=== PATIENT | female | born 1945 | race African-American/Black ===

== ENCOUNTER 2017-01-26 21:09 | Emergency (ER) | payer OTHER ==
--- NOTE | 2017-01-26 22:47 | ED ORDER SUMMARY ---
..... Patient: GARFIELD CISNEROS OrderSheet [facility] VisitID: [id number] [place] [address] 71y, F Registration Date/Time: 01/26/2017 ORDER SHEET Weight: 90.7 kg (stated) Allergies: Codeine, Metamucil, Sepulveda, Tramadol GENERAL ORDERS: Knee 4V Left Urgent (21:51 01/26/2017 Ramiro Jung) (Ack 22:07 Mala) (22:41 Frantz R.N.) Ice (21:52 01/26/2017 Ramiro Jung) (21:59 Frantz Zelaya.N.) MEDICATION ORDERS: Dexamethasone IM 4 mg (NOW) (22:26 01/26/2017 Ramiro Jung) (22:41 Thomas R.N.) IV FLUIDS: ORDER SHEET NOTES: [Electronically signed by Fely Ziegler R.N. (23:20 01/26/2017)] [Electronically signed by Blade Gilman Dr. (23:30 01/26/2017)] [Electronically locked/signed by Fely Ziegler R.N. (23:20 01/26/2017)]
--- NOTE | 2017-01-26 22:47 | ED CLINICAL REPORT ---
Clinical Report - Physicians/Mid Levels [facility] [address] [place] [address] 01/26/2017 21:09 Patient: GARFIELD CISNEROS Time Seen: 21:19; initial patient contact. Arrived- By private vehicle. Historian- patient. HISTORY OF PRESENT ILLNESS Chief Complaint: Injury to left knee. The injury happened today. Injury secondary to other mechansim (No injury). Patient is experiencing moderate pain. Patient denies injury to the head or neck. REVIEW OF SYSTEMS The patient complains of pain on weight bearing. She has had swelling. No tingling, weakness or numbness. All systems otherwise negative, except as recorded above. PAST HISTORY ( Hypertension. Arthritis. DJD.). Medications: Unable to Obtain. Allergies: Codeine. Sepulveda. Metamucil. Tramadol. SOCIAL HISTORY Current every day smoker. Occasional alcohol use. No drug use. ADDITIONAL NOTES The nursing notes have been reviewed. PHYSICAL EXAM Vital Signs: 01/26/2017 21:17 BP: 161/99. HR: 71. RR: 17. O2 saturation: 100%. Temp: 98.3 F. Pain level now: 0/10. Have been reviewed. Blood pressure normal. Tachycardic. Respiratory rate normal. Temperature normal. Oxygen saturation normal. Appearance: Alert. Oriented X3. No acute distress. Skin: Skin warm and dry. Normal skin color. Extremities: Left knee: mild tenderness and swelling. Limited ROM secondary to pain (diminished flexion and extension). Neurovascular intact distally. No ligamentous laxity present. No joint effusion. No erythema, ecchymosis, foreign body or deformity. Lower extremity exam otherwise negative. Extremities otherwise negative. Neuro, Vascular and Tendons: Vascular status intact. Sensation intact. Motor intact. Tendon function intact. Gait: Limping gait. Neuro: Oriented X 3. No motor deficit. PROGRESS AND PROCEDURES PROCEDURES Per protocol, time-out completed immediately before the procedure. Verified: consent was obtained; consent was reviewed. (Left knee joint injection: Consent obtained. Risks/benefits explained. Utilizing sterile technique joint space was entered inferior lateral approach with ease w/ a 1.5" 22 ga needle. 1 mL 4 mg dexamethasone, 2mL Marcaine 0.5%, and 2 mL of Lidocaine plain 2% injected. No complications or bleeding. Pt tolerated the procedure well. Pt reports ionstant pain relief.). Course of Care: Pt reports instant pain relief after injection. Disposition: Discharged home in good and improved condition. Condition: good. CLINICAL IMPRESSION Acute flare of moderate chronic primary osteoarthritis involving the left knee. INSTRUCTIONS Apply ice for 20 minutes four times a day until better. Don't apply ice directly to skin. Do not work for two days. Your Current Medications: CONTINUE TAKING THE FOLLOWING MEDICATIONS: Unable to Obtain*. Prescription Medications: Diclofenac 50 mg tablets: take 1 tablet orally every 8 hours as needed for pain or stiffness. Dispense thirty (30). No refill. Follow-up: Blood pressure screening was not performed during this visit because the patient has an active diagnosis of hypertension. Follow-up with: [facility], , [address], [facility], [id number] Follow up in about two days. Call for an appointment. (Electronically signed by Blade Gilman Dr. 01/26/2017 23:30)
--- NOTE | 2017-01-26 22:47 | ED NURSING NOTES ---
Clinical Report - Nurses [facility] [address] [place] [address] 01/26/2017 21:09 Patient: GARFIELD CISNEROS TRIAGE Triage time 21:Jan 26 2017. Chief Complaint: LEFT LOWER EXTREMITY PAIN. Location of symptoms- left knee (Pt got out of car at work and her left knee "clicked, clicked" and then gave out). Alert. No acute distress. FRANCISCO COMA SCORE: [place] Coma Scale: 15- eyes open spontaneously (4); best verbal response- oriented x 4 (5); best motor response- obeys commands (6). --21:30 Fely Ziegler R.N. 21:17 01/26/17. BP: 161/99. HR: 71. RR: 17. O2 saturation: 100%. Temp: 98.3 F. Pain level now: 0/10. --21:30 Fely Ziegler R.N. Weight: 90.7 kg stated. Height/Length: 65 inches Per Patient. BMI: 33.3. --21:22 Fely Ziegler R.N. Medications Unable to Obtain. --21:21 Fely Ziegler R.N. Medication/allergy information source: the patient. --21:30 Fely Ziegler R.N. Allergies Codeine. --21:22 Fely Ziegler R.N. Metamucil. --21:22 Fely Ziegler R.N. Sepulveda. --21:22 Fely Ziegler R.N. Tramadol. --21:23 Fely Ziegler R.N. History Arrived by private vehicle. Historian: patient. Accompanied by family. No injury occurred. Location of injuries: left knee. This occurred just prior to arrival. Provoking / relieving factors: (pain only with movement). She has had trouble walking. 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 PAST MEDICAL HX: Tetanus status: up-to-date. Immunizations: up-to-date. The patient has had a hysterectomy. SOCIAL HX: Smoker- current status unknown (cigarette). Never smoker. Alcohol use; consumes liquor occasionally. No drug use. No infectious disease exposure. ABUSE ASSESSMENT: No report of abuse. SELF HARM ASSESSMENT: A self harm assessment was performed. The patient answered "no" to the question "Do you have thoughts of harming or killing yourself?". FALL RISK ASSESSMENT: Fall risk assessment completed. No fall risk identified. NUTRITIONAL RISK ASSESSMENT: The nutritional risk assessment revealed no deficiencies. FUNCTIONAL ASSESSMENT: Functional assessment: no impairments noted. LEARNING NEEDS ASSESSMENT: The learning needs assessment revealed no barriers. SKIN INTEGRITY ASSESSMENT: Skin integrity risk assessment completed. No skin integrity risk identified. --21:30 Fely Ziegler R.N. PROBLEMS: Hypertension. Arthritis. DJD. --21:23 Fely Ziegler R.N. ADDITIONAL SURGERIES: Cholecystectomy. . Hernia Repair. Knee arthroscopic. Ortho foot surgery. Tonsillectomy. --21:23 Fely Ziegler R.N. Hysterectomy. --21:28 Fely Ziegler R.N. Interventions ID and allergy band on patient. --21:30 Fely Ziegler R.N. PHYSICAL ASSESSMENT To room via wheelchair. Patient gowned. GENERAL / NEURO / PSYCH: Oriented X 4. Alert. Appears in no acute distress. EXTREMITIES: Extremity pulses are within normal limits. Neuro-vascular status intact to the extremity. Left knee: tenderness and swelling. SKIN: Skin intact. Skin is warm and dry. --21:30 Fely Ziegler R.N. NURSING PROGRESS NOTES Neuro-vascular extremity check. Patient identifiers checked. Call light placed in reach. Side rails up. Bed placed in lowest position. Brakes of bed on. Patient ready for evaluation- chart flagged. Patient waiting for evaluation. --21:30 Fely Ziegler R.N. 22:41 01/26/2017 Dexamethasone IM 4 mg given. Allergies verified and confirmed 5 rights. (Given by Dr. Gilman). --22:41 Bullard, Trupti, R.N. DISPOSITION / DISCHARGE Condition at departure: improved. No learning barriers present. Discharge instructions provided and reviewed with the patient. Reviewed medication(s) side effects, precautions, dosing and course information. Work note given. Patient verbalized understanding. Written instructions provided in Grenadian. The patient was discharged by the physician. She was discharged home and accompanied by family. She left the Emergency Department ambulatory and via private vehicle. Family member driving. ( [facility], [facility] offer of w/c, given rx and f/u.). --23:19 Fely Ziegler R.N. 23:17 01/26/17. BP: 172/96. HR: 67. RR: 17. O2 saturation: 99%. Temp: 98 F. Pain level now: 0/10. --23:19 Fely Ziegler R.N. Locked/Released at 01/26/2017 23:20 by Fely Ziegler R.N.
--- NOTE | 2017-01-26 22:47 | ED NURSING NOTES ---
Clinical Report - Nurses [facility] [address] [place] [address] 01/26/2017 21:09 Patient: GARFIELD CISNEROS TRIAGE Triage time 21:Jan 26 2017. Chief Complaint: LEFT LOWER EXTREMITY PAIN. Location of symptoms- left knee (Pt got out of car at work and her left knee "clicked, clicked" and then gave out). Alert. No acute distress. FRANCISCO COMA SCORE: [place] Coma Scale: 15- eyes open spontaneously (4); best verbal response- oriented x 4 (5); best motor response- obeys commands (6). --21:30 Fely Ziegler R.N. 21:17 01/26/17. BP: 161/99. HR: 71. RR: 17. O2 saturation: 100%. Temp: 98.3 F. Pain level now: 0/10. --21:30 Fely Ziegler R.N. Weight: 90.7 kg stated. Height/Length: 65 inches Per Patient. BMI: 33.3. --21:22 Fely Ziegler R.N. Medications Unable to Obtain. --21:21 Fely Ziegler R.N. Medication/allergy information source: the patient. --21:30 Fely Ziegler R.N. Allergies Codeine. --21:22 Fely Ziegler R.N. Metamucil. --21:22 Fely Ziegler R.N. Sepulveda. --21:22 Fely Ziegler R.N. Tramadol. --21:23 Fely Ziegler R.N. History Arrived by private vehicle. Historian: patient. Accompanied by family. No injury occurred. Location of injuries: left knee. This occurred just prior to arrival. Provoking / relieving factors: (pain only with movement). She has had trouble walking. 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 PAST MEDICAL HX: Tetanus status: up-to-date. Immunizations: up-to-date. The patient has had a hysterectomy. SOCIAL HX: Smoker- current status unknown (cigarette). Never smoker. Alcohol use; consumes liquor occasionally. No drug use. No infectious disease exposure. ABUSE ASSESSMENT: No report of abuse. SELF HARM ASSESSMENT: A self harm assessment was performed. The patient answered "no" to the question "Do you have thoughts of harming or killing yourself?". FALL RISK ASSESSMENT: Fall risk assessment completed. No fall risk identified. NUTRITIONAL RISK ASSESSMENT: The nutritional risk assessment revealed no deficiencies. FUNCTIONAL ASSESSMENT: Functional assessment: no impairments noted. LEARNING NEEDS ASSESSMENT: The learning needs assessment revealed no barriers. SKIN INTEGRITY ASSESSMENT: Skin integrity risk assessment completed. No skin integrity risk identified. --21:30 Fely Ziegler R.N. PROBLEMS: Hypertension. Arthritis. DJD. --21:23 Fely Ziegler R.N. ADDITIONAL SURGERIES: Cholecystectomy. . Hernia Repair. Knee arthroscopic. Ortho foot surgery. Tonsillectomy. --21:23 Fely Ziegler R.N. Hysterectomy. --21:28 Fely Ziegler R.N. Interventions ID and allergy band on patient. --21:30 Fely Ziegler R.N. PHYSICAL ASSESSMENT To room via wheelchair. Patient gowned. GENERAL / NEURO / PSYCH: Oriented X 4. Alert. Appears in no acute distress. EXTREMITIES: Extremity pulses are within normal limits. Neuro-vascular status intact to the extremity. Left knee: tenderness and swelling. SKIN: Skin intact. Skin is warm and dry. --21:30 Fely Ziegler R.N. NURSING PROGRESS NOTES Neuro-vascular extremity check. Patient identifiers checked. Call light placed in reach. Side rails up. Bed placed in lowest position. Brakes of bed on. Patient ready for evaluation- chart flagged. Patient waiting for evaluation. --21:30 Fely Ziegler R.N. 22:41 01/26/2017 Dexamethasone IM 4 mg given. Allergies verified and confirmed 5 rights. (Given by Dr. Gilman). --22:41 Bullard, Trupti, R.N. DISPOSITION / DISCHARGE Condition at departure: improved. No learning barriers present. Discharge instructions provided and reviewed with the patient. Reviewed medication(s) side effects, precautions, dosing and course information. Work note given. Patient verbalized understanding. Written instructions provided in Belizean. The patient was discharged by the physician. She was discharged home and accompanied by family. She left the Emergency Department ambulatory and via private vehicle. Family member driving. ( [facility], [facility] offer [facility] w/[facility], given rx and f/u.). --23:19 Fely Ziegler R.N. 23:17 01/26/17. BP: 172/96. HR: 67. RR: 17. O2 saturation: 99%. Temp: 98 F. Pain level now: 0/10. --23:19 Fely Ziegler R.N. Locked/Released at 01/26/2017 23:20 by Fely Ziegler R.N.
--- NOTE | 2017-01-26 22:47 | ED CLINICAL REPORT ---
Clinical Report - Physicians/Mid Levels [facility] [address] [place] [address] 01/26/2017 21:09 Patient: GARFIELD CISNEROS Time Seen: 21:19; initial patient contact. Arrived- By private vehicle. Historian- patient. HISTORY OF PRESENT ILLNESS Chief Complaint: Injury to left knee. The injury happened today. Injury secondary to other mechansim (No injury). Patient is experiencing moderate pain. Patient denies injury to the head or neck. REVIEW OF SYSTEMS The patient complains of pain on weight bearing. She has had swelling. No tingling, weakness or numbness. All systems otherwise negative, except as recorded above. PAST HISTORY ( Hypertension. Arthritis. DJD.). Medications: Unable to Obtain. Allergies: Codeine. Sepulveda. Metamucil. Tramadol. SOCIAL HISTORY Current every day smoker. Occasional alcohol use. No drug use. ADDITIONAL NOTES The nursing notes have been reviewed. PHYSICAL EXAM Vital Signs: 01/26/2017 21:17 BP: 161/99. HR: 71. RR: 17. O2 saturation: 100%. Temp: 98.3 F. Pain level now: 0/10. Have been reviewed. Blood pressure normal. Tachycardic. Respiratory rate normal. Temperature normal. Oxygen saturation normal. Appearance: Alert. Oriented X3. No acute distress. Skin: Skin warm and dry. Normal skin color. Extremities: Left knee: mild tenderness and swelling. Limited ROM secondary to pain (diminished flexion and extension). Neurovascular intact distally. No ligamentous laxity present. No joint effusion. No erythema, ecchymosis, foreign body or deformity. Lower extremity exam otherwise negative. Extremities otherwise negative. Neuro, Vascular and Tendons: Vascular status intact. Sensation intact. Motor intact. Tendon function intact. Gait: Limping gait. Neuro: Oriented X 3. No motor deficit. PROGRESS AND PROCEDURES PROCEDURES Per protocol, time-out completed immediately before the procedure. Verified: consent was obtained; consent was reviewed. (Left knee joint injection: Consent obtained. Risks/benefits explained. Utilizing sterile technique joint space was entered inferior lateral approach with ease w/ a 1.5" 22 ga needle. 1 mL 4 mg dexamethasone, 2mL Marcaine 0.5%, and 2 mL of Lidocaine plain 2% injected. No complications or bleeding. Pt tolerated the procedure well. Pt reports ionstant pain relief.). Course of Care: Pt reports instant pain relief after injection. Disposition: Discharged home in good and improved condition. Condition: good. CLINICAL IMPRESSION Acute flare of moderate chronic primary osteoarthritis involving the left knee. INSTRUCTIONS Apply ice for 20 minutes four times a day until better. Don't apply ice directly to skin. Do not work for two days. Your Current Medications: CONTINUE TAKING THE FOLLOWING MEDICATIONS: Unable to Obtain*. Prescription Medications: Diclofenac 50 mg tablets: take 1 tablet orally every 8 hours as needed for pain or stiffness. Dispense thirty (30). No refill. Follow-up: Blood pressure screening was not performed during this visit because the patient has an active diagnosis of hypertension. Follow-up with: [facility], , [address], [facility], [id number] Follow up in about two days. Call for an appointment. (Electronically signed by Blade Gilman Dr. 01/26/2017 23:30)
--- NOTE | 2017-01-26 22:47 | ED ORDER SUMMARY ---
..... Patient: GARFILED CISNEROS OrderSheet [facility] VisitID: [id number] [place] [address] 71y, F Registration Date/Time: 01/26/2017 ORDER SHEET Weight: 90.7 kg (stated) Allergies: Codeine, Metamucil, Sepulveda, Tramadol GENERAL ORDERS: Knee 4V Left Urgent (21:51 01/26/2017 Ramiro Jung) (Ack 22:07 Mala) (22:41 Frantz R.N.) Ice (21:52 01/26/2017 Ramiro Jung) (21:59 Frantz Zelaya.N.) MEDICATION ORDERS: Dexamethasone IM 4 mg (NOW) (22:26 01/26/2017 Ramiro Jung) (22:41 Thomas R.N.) IV FLUIDS: ORDER SHEET NOTES: [Electronically signed by Fely Ziegler R.N. (23:20 01/26/2017)] [Electronically signed by Blade Gilman Dr. (23:30 01/26/2017)] [Electronically locked/signed by Fely Ziegler R.N. (23:20 01/26/2017)]
--- NOTE | 2017-01-26 23:30 | ED MAR SUMMARY ---
..... Medication Administration Record [facility] [address] [place] [address] Patient: GARFIELD CISNEROS Visit ID: [id number] 71y, F Weight: 90.7 kg Height/Length: 65 in BMI: 33.3 ALLERGIES: Tramadol, Sepulveda, Metamucil, Codeine Given 22:41 01/26/2017 Trupti Bullard RAdalid Medication Administered: DEXAMETHASONE [IM], Dose: 4 mg IM. Medication Ordered: Dexamethasone IM 4 mg (NOW).
--- NOTE | 2017-01-26 23:30 | ED DISCHARGE INSTRUCTIONS ---
Patient: GARFIELD CISNEROS General Instructions [facility] VisitID: [id number] [address] [place] [address] 71y, F Registration Date/Time: 01/26/2017 Acute flare of moderate chronic primary osteoarthritis involving the left knee. INSTRUCTIONS Apply ice for 20 minutes four times a day until better. Don't apply ice directly to skin. Do not work for two days. Your Current Medications: CONTINUE TAKING THE FOLLOWING MEDICATIONS: Unable to Obtain*. Prescription Medications: Diclofenac 50 mg tablets: take 1 tablet orally every 8 hours as needed for pain or stiffness. Dispense thirty (30). No refill. Follow-up: Blood pressure screening was not performed during this visit because the patient has an active diagnosis of hypertension. Follow[facility]up with: [facility], , [address], [place], [address] Follow up in about two days. Call for an appointment. ADDITIONAL INFORMATION Osteoarthritis Osteoarthritis (also called Degenerative Joint Disease) is the most common form of arthritis in adults over 50. It is not the same as Rheumatoid Arthritis. The exact cause is not known but may be related to excess wear and tear on the joint over a long period of time. Prior injury to that joint, or repeated stress on a joint can also cause this type of arthritis. Osteoarthritis most often affects the hands, knees, spine and hips (in that order). The most common symptoms are joint stiffness, pain and swelling. Home Care: When a joint is more sore than usual, rest that joint for a day or two. Heat is very helpful. This can be provided by taking hot baths, applying a heating pad for up to 30 minutes at a time. Because symptoms are usually worse in the morning, many patients like to take a hot bath just after awakening to relax the muscle and soothe the joints. Exercise is the most important part of home treatment for osteoarthritis. This prevents the muscles and ligaments around the joint from becoming weak and helps maintain the full range of joint motion. This limits further damage to the joint. If you are overweight, this puts a lot of extra strain on weight-bearing joints of the lower back, hips, knees, feet and ankles. Losing weight will improve your arthritis symptoms in these joints. Talk to your doctor about a safe and effective weight loss program for yourself. Anti-inflammatory medicine such as ibuprofen (Advil, Motrin) or naproxen (Aleve) is often used to treat this condition. If this alone is not helping, your doctor may prescribe a stronger medicine. If narcotic pain medicines have been prescribed, they should be used in addition to anti-inflammatory drugs and only for severe pain. Follow Up with your doctor as advised by our staff. Get Prompt Medical Attention if any of the following occur: Redness or swelling of a painful joint Fever of 100.4F (38C) or higher, or as directed by your healthcare provider Worsening joint pain You have been given the following additional information: Osteoarthritis Do not work for two days. (Electronically signed by Blade Gilman Dr. 01/26/2017 23:30)
--- NOTE | 2017-01-26 23:30 | ED DISCHARGE INSTRUCTIONS ---
Patient: GARFIELD CISNEROS General Instructions [facility] VisitID: [id number] [address] [place] [address] 71y, F Registration Date/Time: 01/26/2017 Acute flare of moderate chronic primary osteoarthritis involving the left knee. INSTRUCTIONS Apply ice for 20 minutes four times a day until better. Don't apply ice directly to skin. Do not work for two days. Your Current Medications: CONTINUE TAKING THE FOLLOWING MEDICATIONS: Unable to Obtain*. Prescription Medications: Diclofenac 50 mg tablets: take 1 tablet orally every 8 hours as needed for pain or stiffness. Dispense thirty (30). No refill. Follow-up: Blood pressure screening was not performed during this visit because the patient has an active diagnosis of hypertension. Follow-up with: [facility], , [address], [place], [address] Follow up in about two days. Call for an appointment. ADDITIONAL INFORMATION Osteoarthritis Osteoarthritis (also called Degenerative Joint Disease) is the most common form of arthritis in adults over 50. It is not the same as Rheumatoid Arthritis. The exact cause is not known but may be related to excess wear and tear on the joint over a long period of time. Prior injury to that joint, or repeated stress on a joint can also cause this type of arthritis. Osteoarthritis most often affects the hands, knees, spine and hips (in that order). The most common symptoms are joint stiffness, pain and swelling. Home Care: When a joint is more sore than usual, rest that joint for a day or two. Heat is very helpful. This can be provided by taking hot baths, applying a heating pad for up to 30 minutes at a time. Because symptoms are usually worse in the morning, many patients like to take a hot bath just after awakening to relax the muscle and soothe the joints. Exercise is the most important part of home treatment for osteoarthritis. This prevents the muscles and ligaments around the joint from becoming weak and helps maintain the full range of joint motion. This limits further damage to the joint. If you are overweight, this puts a lot of extra strain on weight-bearing joints of the lower back, hips, knees, feet and ankles. Losing weight will improve your arthritis symptoms in these joints. Talk to your doctor about a safe and effective weight loss program for yourself. Anti-inflammatory medicine such as ibuprofen (Advil, Motrin) or naproxen (Aleve) is often used to treat this condition. If this alone is not helping, your doctor may prescribe a stronger medicine. If narcotic pain medicines have been prescribed, they should be used in addition to anti-inflammatory drugs and only for severe pain. Follow Up with your doctor as advised by our staff. Get Prompt Medical Attention if any of the following occur: Redness or swelling of a painful joint Fever of 100.4F (38C) or higher, or as directed by your healthcare provider Worsening joint pain You have been given the following additional information: Osteoarthritis Do not work for two days. (Electronically signed by Blade Gilman Dr. 01/26/2017 23:30)
--- NOTE | 2017-01-26 23:30 | ED MAR SUMMARY ---
..... Medication Administration Record [facility] [address] [place] [address] Patient: GARFIELD CISNEROS Visit ID: [id number] 71y, F Weight: 90.7 kg Height/Length: 65 in BMI: 33.3 ALLERGIES: Tramadol, Sepulveda, Metamucil, Codeine Given 22:41 01/26/2017 Trupti Bullard RAdalid Medication Administered: DEXAMETHASONE [IM], Dose: 4 mg IM. Medication Ordered: Dexamethasone IM 4 mg (NOW).
--- NOTE | 2017-01-26 23:30 | ED MED RECONCILIATION SUMMARY ---
Patient: GARFIELD CISNEROS Medication Reconciliation Report [facility] VisitID: [id number] [address] [place] [address] 71y, F Registration Date/Time: 01/26/2017 Weight: 90.7 kg Height/Length: 65 in. BMI: 33.3 ALLERGIES: Codeine, Sepulveda, Metamucil, Tramadol The patient's Home Medications are listed below: Unable to obtain. The source(s) of the original Home Medication information: patient The following Medications were given to the patient in the Emergency Department: Dexamethasone [IM] IM 4 mg, administered: 01/26/2017 10:41:00 PM The following Medications were prescribed to the patient: Diclofenac 50 mg tablets: take 1 tablet orally every 8 hours as needed for pain or stiffness. Dispense thirty (30). No refill. -- Blade Gilman Dr.
--- NOTE | 2017-01-26 23:30 | ED MED RECONCILIATION SUMMARY ---
Patient: GARFIELD CISNEROS Medication Reconciliation Report [facility] VisitID: [id number] [address] [place] [address] 71y, F Registration Date/Time: 01/26/2017 Weight: 90.7 kg Height/Length: 65 in. BMI: 33.3 ALLERGIES: Codeine, Sepulveda, Metamucil, Tramadol The patient's Home Medications are listed below: Unable to obtain. The source(s) of the original Home Medication information: patient The following Medications were given to the patient in the Emergency Department: Dexamethasone [IM] IM 4 mg, administered: 01/26/2017 10:41:00 PM The following Medications were prescribed to the patient: Diclofenac 50 mg tablets: take 1 tablet orally every 8 hours as needed for pain or stiffness. Dispense thirty (30). No refill. -- Blade Gilman Dr.
--- NOTE | 2017-01-26 23:43 | DIAGNOSTIC IMAGING REPORT ---
PROCEDURE: XR KNEE 4 VIEWS - LEFT INDICATION: PAIN IN JOINT TECHNIQUE: Four views. COMPARISON: None. FINDINGS: There are moderate to severe degenerative changes and joint space narrowing of all three compartments. There are osseous densities overlying the popliteal fossa suspicious for loose bodies (12 mm, 15 mm). Small effusion. IMPRESSION: 1. 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 2. Probable loose bodies in the popliteal fossa. 3. Small left knee effusion.
== END 2017-01-26 23:11 | disposition home or self-care (01) ==
LOC: ED SRH 21:09
DX: M17.12 Unilateral primary osteoarthritis, left knee (principal); I10 Essential (primary) hypertension; F17.210 Nicotine dependence, cigarettes, uncomplicated; Z88.5 Allergy status to narcotic agent; Z88.6 Allergy status to analgesic agent; Z91.018 Allergy to other foods